=== PATIENT | male | born 1975 | race Caucasian/White ===

== ENCOUNTER 2018-11-17 16:27 | Inpatient (IN) | payer OTHER ==
[2018-11-17 18:33] VITALS: BMI 28.6
--- NOTE | 2018-11-17 19:01 | HP ---
CIWA Score Nausea/Vomitin-No Nausea/No Vomiting Muscle Tremors: 3 Anxiety: 2 Agitation: 1-Slight > Activity Paroxysmal Sweats: 2 Orientation: 0-Oriented Tacttile Disturbances: 3-Moderate Itch/Numb/Burn Auditory Disturbances: 0-None Visual Disturbances: 1-Very Mild Sensitivity Headache: 0-None Present CIWA-Ar Total Score: 12 - Admission Criteria OASAS Guidelines: Admission for Medically Managed Detox: Requires at least one of the followin. CIWA greater than 12 2. Seizures within the past 24 hours 3. Delirium tremens within the past 24 hours 4. Hallucinations within the past 24 hours 5. Acute intervention needed for co occurring medical disorder 6. Acute intervention needed for co occurring psychiatric disorder 7. Severe withdrawal that cannot be handled at a lower level of care (continued vomiting, continued diarrhea, abnormal vital signs) requiring intravenous medication and/or fluids 8. Patient presents the following: CIWA greater than 12 Admission Criteria Met: Admission criteria met Admission ROS S - [facility] Chief Complaint: alcohol withdrawal Allergies/Adverse Reactions: Allergies Allergy/AdvReac Type Severity Reaction Status Date / Time No Known Allergies Allergy Verified 11/17/18 18:25 History of Present Illness: 42 yo male with hx of alcohol dependence is here inpatient alcohol detox. Reports first time seeking treatment for his alcohol use. Reports currently drinking 2 litters of henessy three times a week and uses cocaine three times per week . PMHX: HDL. Psych: Denies. Denies SI/ HI or hx of suicide attempt. Denies hx of seizures or blackouts. Exam Limitations: No Limitations - Ebola screening Have you traveled outside of the country in the last 21 days: No Have you had contact with anyone from an Ebola affected area: No Do you have a fever: No - Review of Systems Constitutional: Chills, Changes in sleep, Unintentional Wgt. Loss EENT: reports: No Symptoms Reported Respiratory: reports: No Symptoms reported Cardiac: reports: No Symptoms Reported GI: reports: Constipated, Poor Fluid Intake, Indigestion : reports: Other (hesitancy) Musculoskeletal: reports: Back Pain Integumentary: reports: No Symptoms Reported Neuro: reports: Numbness (both feet) Endocrine: reports: Increased Thirst Hematology: reports: No Symptoms Reported Psychiatric: reports: Orientated x3, Depressed Other Systems: Reviewed and Negative Patient History - Patient Medical History Hx Anemia: No Hx Asthma: No Hx Chronic Obstructive Pulmonary Disease (COPD): No Hx Cancer: No Hx Cardiac Disorders: No Hx Congestive Heart Failure: No Hx Hypertension: No Hx Hypercholesterolemia: Yes Hx Pacemaker: No HX Cerebrovascular Accident: No Hx Seizures: No Hx Dementia: No Hx Diabetes: No Hx Gastrointestinal Disorders: No Hx Liver Disease: No Hx Genitourinary Disorders: No Hx Sexually Transmitted Disorders: No Hx Renal Disease (ESRD): No Hx Thyroid Disease: No Hx Hepatitis C: No Hx Depression: Yes Hx Suicide Attempt: No Hx Bipolar Disorder: No Hx Schizophrenia: No - Patient Surgical History Past Surgical History: No - PPD History Previous Implant?: No Documented Results: Negative w/o proof PPD to be Administered?: Yes - Smoking Cessation Smoking history: Never smoked Hx Chewing Tobacco Use: No Initiated information on smoking cessation: No - Substance & Tx. History Hx Alcohol Use: Yes Hx Substance Use: Yes Substance Use Type: Alcohol, Cocaine Hx Substance Use Treatment: No - Substances abused Alcohol Substance route: Oral Frequency: 3-6 times per week Amount used: 2 liters of [place] and 8 x 12 oz beers Age of first use: 19 Date of last use: 11/17/18 Cocaine Substance route: Inhalation Frequency: 3-6 times per week Amount used: 100$ 3x a week Age of first use: 17 Date of last use: 11/17/18 Family Disease History - Family Disease History Family History: Denies Admission Physical Exam S - Vital Signs Vital Signs: Vital Signs - 24 hr 11/17/18 18:26 Temperature 99.1 F Pulse Rate 67 Respiratory 18 Rate Blood Pressure 136/87 - Physical General Appearance: Yes: Nourished, Appropriately Dressed, Mild Distress, Sweating, Anxious HEENTM: Yes: EOMI, Hearing grossly Normal, Normal ENT Inspection, Normocephalic , Normal Voice, BRITTANI, Pharynx Normal, Tm's normal Respiratory: Yes: Chest Non-Tender, Lungs Clear, No Respiratory Distress, No Accessory Muscle Use, Wheezing Neck: Yes: Within Normal Limits Breast: Yes: Breast Exam Deferred Cardiology: Yes: Regular Rhythm, Regular Rate Abdominal: Yes: Normal Bowel Sounds, Non Tender, Flat, Soft Genitourinary: Yes: Within Normal Limits Back: Yes: Normal Inspection Musculoskeletal: Yes: full range of Motion, Gait Steady, Pelvis Stable Extremities: Yes: Normal Capillary Refill, Normal Inspection, Normal Range of Motion, Non-Tender Neurological: Yes: aircraft stress analyst II-XII NML intact, Fully Oriented, Alert, Motor Strength 5/5, Depressed Affect Integumentary: Yes: Normal Color, Warm, Diaphoresis Lymphatic: Yes: Within Normal Limits - Diagnostic (1) Alcohol dependence with uncomplicated withdrawal Current Visit: Yes Status: Acute (2) Depressed mood Current Visit: Yes Status: Acute (3) Wheezing Current Visit: Yes Status: Acute Cleared for Admission [facility] - Detox or Rehab [facility] Level of Care: Medically Managed Detox Regimen/Protocol: Librium Inpatient Rehab Admission - Rehab Decision to Admit Inpatient rehab admission?: No
[2018-11-17] MEDS ORDERED: MAGNESIUM CITRATE 300 ML BOTTLE PO PRN (19:07)
[2018-11-17] MEDS ORDERED: ACETAMINOPHEN 325 MG TABLET (FP) PO PRN ×2 (19:07)
[2018-11-17] MEDS ORDERED: MAGNESIUM HYDROX 2400MG/30ML ORAL SUSPENSION 30 ML CUP PO PRN (19:07)
[2018-11-17] MEDS ORDERED: IBUPROFEN 400 MG TABLET (FP) PO PRN (19:07)
[2018-11-17] MEDS ORDERED: MENTHOL/PHENOL 1 EACH UD MM PRN (19:07)
[2018-11-17] MEDS ORDERED: MAG HYDROX/AL HYDROX/SIMETH 30 ML UNIT-DOSE CUP PO PRN (19:07)
[2018-11-17] MEDS ORDERED: BISMUTH SUBSALICYLATE 524 MG/30 ML UD PO PRN (19:07)
[2018-11-17] MEDS ORDERED: METHOCARBAMOL 500 MG TABLET PO PRN (19:07)
[2018-11-17] MEDS ORDERED: hydrOXYzine PAMOATE 25 MG CAPSULE (FP) PO PRN (19:07)
[2018-11-17] MEDS ORDERED: chlordiazePOXIDE HCL 25 MG CAPSULE PO PRN (19:07)
[2018-11-17] MEDS ORDERED: ALBUTEROL SO4 0.083% IH SOL 2.5 MG/3 ML VIAL.NEB. NEB PRN (19:25)
[2018-11-17] MEDS: chlordiazePOXIDE HCL 25 MG CAPSULE PO SCH (22:12)
[2018-11-17] MEDS: THIAMINE HCL 100 MG TABLET (FP) PO SCH (22:12)
[2018-11-18] MEDS: chlordiazePOXIDE HCL 25 MG CAPSULE PO SCH ×4 (06:03→22:36)
[2018-11-18 10:10] LABS: ALBUMIN 3.6 g/dl (3.4-5.0); BILIRUBIN,TOTAL 0.4 mg/dL (0.2-1); CALCIUM 8.7 mg/dL (8.5-10.1); CREATININE 1.1 mg/dL (0.55-1.3); TOT PROT 6.9 g/dl (6.4-8.2)
[2018-11-18 10:14] LABS: HEMATOCRIT 40.4 % (35.4-49); HEMOGLOBIN 13.5 GM/dL (11.7-16.9); MCH 30.7 pg (25.7-33.7); MCHC 33.3 g/dl (32.0-35.9); MEAN CELL VOLUME 92.2 fl (80-96); MEAN PLT VOLUME 9.4 fl (7.5-11.1); PLATELET COUNT 172 K/MM3 (134-434); RBC 4.38 M/mm3 (4.00-5.60); RDW 13.1 % (11.9-15.9); WHITE BLOOD COUNT 3.7 K/mm3 (4.0-10.0)
[2018-11-18] MEDS: PRENATAL VITAMINS W/ FOLIC ACID TABLET (FP) PO SCH (10:48)
--- NOTE | 2018-11-18 10:53 | EKG ---
Test Reason : Blood Pressure : / mmHG Vent. Rate : 051 BPM Atrial Rate : 051 BPM P-R Int : 152 ms QRS Dur : 090 ms QT Int : 434 ms P-R-T Axes : 046 026 035 degrees QTc Int : 400 ms SINUS BRADYCARDIA OTHERWISE NORMAL ECG NO PREVIOUS ECGS AVAILABLE Confirmed by DESTINY JACKSON MD ([id number]) on 11/18/2018 10:52:59 AM Referred By: Confirmed By:DESTINY JACKSON MD
--- NOTE | 2018-11-18 11:10 | CONSULT ---
[facility] Psychiatric Consult - Data Date of interview: 11/18/18 Admission source: [facility] Identifying data: First admission to [facility] for this 42 y/o male self-referred for detoxification treatment (alcohol, cocaine). Examined at [address] [place] [address]. Patient is , a father of one, domiciled and employed. Substance Abuse History: Confirmed by the patient in this interview. Details in current [facility] report as follows : Smoking history: Never smoked. Hx Chewing Tobacco Use: No. Initiated information on smoking cessation: No. Substance & Tx. History. Hx Alcohol Use: Yes. Hx Substance Use: Yes. Substance Use Type: Alcohol, Cocaine. Hx Substance Use Treatment: No. - Substances abused. Alcohol. Substance route: Oral. Frequency: 3-6 times per week. Amount used: 2 liters of [place] and 8 x 12 oz beers. Age of first use: 19. Date of last use: 11/17/18. Cocaine. Substance route: Inhalation. Frequency: 3-6 times per week. Amount used: 100$ 3x a week. Age of first use: 17. Date of last use : 11/17/18 Medical History: Patient endorses good general health. Psychiatric History: Patient denies. Physical/Sexual Abuse/Trauma History: No history. Additional Comment: No toxicology on file. Mental Status Exam - Mental Status Exam Alert and Oriented to: Time, Place, Person Cognitive Function: Good Patient Appearance: Well Groomed Mood: Nervous, Withdrawn, Anxious Affect: Mood Congruent, Constricted Patient Behavior: Fatigued, Appropriate, Cooperative Speech Pattern: Clear, Appropriate (in eritrean) Voice Loudness: Normal Thought Process: Goal Oriented Thought Disorder: Not Present Hallucinations: Denies Suicidal Ideation: Denies Homicidal Ideation: Denies Insight/Judgement: Poor Sleep: Well Appetite: Good Muscle strength/Tone: Normal Gait/Station: Normal Psychiatric Findings - Problem List (Roy 1, 2,3) (1) Alcohol dependence with uncomplicated withdrawal Current Visit: Yes Status: Acute (2) Cocaine dependence Current Visit: Yes Status: Chronic Comment: As per self-report. - Initial Treatment Plan Initial Treatment Plan: Psychoeducation. Sleep hygiene. Detoxification. Relapse prevention (MAT) : discussed in this session. Observation.
--- NOTE | 2018-11-18 12:14 | PN ---
S CIWA - CIWA Score Nausea/Vomitin-No Nausea/No Vomiting Muscle Tremors: 4-Moderate,w/Arms Extend Anxiety: 4-Mod. Anxious/Guarded Agitation: 3 Paroxysmal Sweats: 1-Minimal Palms Moist Orientation: 0-Oriented Tacttile Disturbances: 0-None Auditory Disturbances: 0-None Visual Disturbances: 0-None Headache: 0-None Present CIWA-Ar Total Score: 12 BHS Progress Note (SOAP) Subjective: SLIGHT TREMORS, ANXIETY, SWEATS. Objective: 11/18/18 12:13 Vital Signs 11/18/18 11/18/18 06:04 09:14 Temperature 96.7 F L 97.3 F L Pulse Rate 62 58 L Respiratory 18 18 Rate Blood Pressure 109/61 97/62 Laboratory Tests 11/18/18 11/18/18 07:45 07:45 WBC 3.7 L RBC 4.38 Hgb 13.5 Hct 40.4 MCV 92.2 MCH 30.7 MCHC 33.3 RDW 13.1 Plt Count 172 MPV 9.4 Sodium 140 Potassium 4.0 Chloride 104 Carbon Dioxide 29 Anion Gap 7 L BUN 13 Creatinine 1.1 Est GFR (CKD-EPI)AfAm 94.79 Est GFR (CKD-EPI)NonAf 81.78 Random Glucose 88 Calcium 8.7 Total Bilirubin 0.4 AST 14 L ALT 29 Alkaline Phosphatase 70 Total Protein 6.9 Albumin 3.6 Assessment: 11/18/18 12:14 WITHDRAWAL SX Plan: CONTINUE DETOX
[2018-11-18] MEDS: THIAMINE HCL 100 MG TABLET (FP) PO SCH (22:35)
[2018-11-18] MEDS: MELATONIN 5 MG TABLETS PO PRN (22:36)
[2018-11-19] MEDS: chlordiazePOXIDE HCL 25 MG CAPSULE PO SCH ×3 (06:17→17:52)
[2018-11-19] MEDS: PRENATAL VITAMINS W/ FOLIC ACID TABLET (FP) PO SCH (10:05)
--- NOTE | 2018-11-19 11:52 | PN ---
S CIWA - CIWA Score Nausea/Vomitin-Mild Nausea/No Vomiting Muscle Tremors: 2 Anxiety: 2 Agitation: 2 Paroxysmal Sweats: 1-Minimal Palms Moist Orientation: 0-Oriented Tacttile Disturbances: 0-None Auditory Disturbances: 0-None Visual Disturbances: 0-None Headache: 0-None Present CIWA-Ar Total Score: 8 S Progress Note (SOAP) Subjective: patient reported that he is taking flomax daily x "years" last dose "days" ago feeling better today social with peers on hallway in day room Objective: 11/19/18 12:22 Vital Signs Temperature 97.1 F L 11/19/18 09:11 Pulse Rate 56 L 11/19/18 09:11 Respiratory Rate 18 11/19/18 09:11 Blood Pressure 100/60 11/19/18 09:11 O2 Sat by Pulse Oximetry (%) Laboratory Last Values WBC 3.7 K/mm3 (4.0-10.0) L 11/18/18 07:45 RBC 4.38 M/mm3 (4.00-5.60) 11/18/18 07:45 Hgb 13.5 GM/dL (11.7-16.9) 11/18/18 07:45 Hct 40.4 % (35.4-49) 11/18/18 07:45 MCV 92.2 fl (80-96) 11/18/18 07:45 MCH 30.7 pg (25.7-33.7) 11/18/18 07:45 MCHC 33.3 g/dl (32.0-35.9) 11/18/18 07:45 RDW 13.1 % (11.9-15.9) 11/18/18 07:45 Plt Count 172 K/MM3 (134-434) 11/18/18 07:45 MPV 9.4 fl (7.5-11.1) 11/18/18 07:45 Sodium 140 mmol/L (136-145) 11/18/18 07:45 Potassium 4.0 mmol/L (3.5-5.1) 11/18/18 07:45 Chloride 104 mmol/L (98-107) 11/18/18 07:45 Carbon Dioxide 29 mmol/L (21-32) 11/18/18 07:45 Anion Gap 7 MMOL/L (8-16) L 11/18/18 07:45 BUN 13 mg/dL (7-18) 11/18/18 07:45 Creatinine 1.1 mg/dL (0.55-1.3) 11/18/18 07:45 Est GFR (CKD-EPI)AfAm 94.79 11/18/18 07:45 Est GFR (CKD-EPI)NonAf 81.78 11/18/18 07:45 Random Glucose 88 mg/dL (74-106) 11/18/18 07:45 Calcium 8.7 mg/dL (8.5-10.1) 11/18/18 07:45 Total Bilirubin 0.4 mg/dL (0.2-1) 11/18/18 07:45 AST 14 U/L (15-37) L 11/18/18 07:45 ALT 29 U/L (13-61) 11/18/18 07:45 Alkaline Phosphatase 70 U/L (45-117) 11/18/18 07:45 Total Protein 6.9 g/dl (6.4-8.2) 11/18/18 07:45 Albumin 3.6 g/dl (3.4-5.0) 11/18/18 07:45 RPR Titer Nonreactive (NONREACTIVE) 11/18/18 07:45 lab noted Assessment: 11/19/18 12:23 withdrawal sx Plan: continue detox
[2018-11-19] MEDS: THIAMINE HCL 100 MG TABLET (FP) PO SCH (22:31)
[2018-11-19] MEDS: MELATONIN 5 MG TABLETS PO PRN (22:31)
[2018-11-19] MEDS: TAMSULOSIN HCL 0.4 MG CAP PO SCH (22:31)
[2018-11-19] MEDS: chlordiazePOXIDE HCL 10 MG CAPSULE PO SCH (22:31)
[2018-11-19] MEDS ORDERED: chlordiazePOXIDE HCL 10 MG CAPSULE PO PRN (23:00)
[2018-11-20] MEDS: chlordiazePOXIDE HCL 10 MG CAPSULE PO SCH ×3 (05:12→17:54)
[2018-11-20] MEDS: PRENATAL VITAMINS W/ FOLIC ACID TABLET (FP) PO SCH (10:05)
--- NOTE | 2018-11-20 13:10 | PN ---
S CIWA - CIWA Score Nausea/Vomitin-No Nausea/No Vomiting Muscle Tremors: 2 Anxiety: 1-Mildly Anxious Agitation: 2 Paroxysmal Sweats: No Perspiration Orientation: 0-Oriented Tacttile Disturbances: 0-None Auditory Disturbances: 0-None Visual Disturbances: 0-None Headache: 0-None Present CIWA-Ar Total Score: 5 S Progress Note (SOAP) Subjective: feeling better today sleep through the night hesitate to discuss aftercare with staff Objective: 11/20/18 13:10 Vital Signs Temperature 97.8 F 11/20/18 09:17 Pulse Rate 68 11/20/18 09:17 Respiratory Rate 18 11/20/18 09:17 Blood Pressure 94/61 11/20/18 09:17 O2 Sat by Pulse Oximetry (%) Laboratory Last Values WBC 3.7 K/mm3 (4.0-10.0) L 11/18/18 07:45 RBC 4.38 M/mm3 (4.00-5.60) 11/18/18 07:45 Hgb 13.5 GM/dL (11.7-16.9) 11/18/18 07:45 Hct 40.4 % (35.4-49) 11/18/18 07:45 MCV 92.2 fl (80-96) 11/18/18 07:45 MCH 30.7 pg (25.7-33.7) 11/18/18 07:45 MCHC 33.3 g/dl (32.0-35.9) 11/18/18 07:45 RDW 13.1 % (11.9-15.9) 11/18/18 07:45 Plt Count 172 K/MM3 (134-434) 11/18/18 07:45 MPV 9.4 fl (7.5-11.1) 11/18/18 07:45 Sodium 140 mmol/L (136-145) 11/18/18 07:45 Potassium 4.0 mmol/L (3.5-5.1) 11/18/18 07:45 Chloride 104 mmol/L (98-107) 11/18/18 07:45 Carbon Dioxide 29 mmol/L (21-32) 11/18/18 07:45 Anion Gap 7 MMOL/L (8-16) L 11/18/18 07:45 BUN 13 mg/dL (7-18) 11/18/18 07:45 Creatinine 1.1 mg/dL (0.55-1.3) 11/18/18 07:45 Est GFR (CKD-EPI)AfAm 94.79 11/18/18 07:45 Est GFR (CKD-EPI)NonAf 81.78 11/18/18 07:45 Random Glucose 88 mg/dL (74-106) 11/18/18 07:45 Calcium 8.7 mg/dL (8.5-10.1) 11/18/18 07:45 Total Bilirubin 0.4 mg/dL (0.2-1) 11/18/18 07:45 AST 14 U/L (15-37) L 11/18/18 07:45 ALT 29 U/L (13-61) 11/18/18 07:45 Alkaline Phosphatase 70 U/L (45-117) 11/18/18 07:45 Total Protein 6.9 g/dl (6.4-8.2) 11/18/18 07:45 Albumin 3.6 g/dl (3.4-5.0) 11/18/18 07:45 RPR Titer Nonreactive (NONREACTIVE) 11/18/18 07:45 lab noted Assessment: 11/20/18 13:11 withdrawal sx Plan: continue detox
[2018-11-20] MEDS: TAMSULOSIN HCL 0.4 MG CAP PO SCH (22:06)
[2018-11-20] MEDS: THIAMINE HCL 100 MG TABLET (FP) PO SCH (22:06)
[2018-11-20] MEDS: MELATONIN 5 MG TABLETS PO PRN (22:06)
[2018-11-20] MEDS ORDERED: chlordiazePOXIDE HCL 10 MG CAPSULE PO SCH (23:00)
[2018-11-21 09:15] VITALS: BP 126/72; PULSE 75; TEMP 97.4
--- NOTE | 2018-11-21 15:27 | DS ---
[facility] Detox Discharge Summary Admission Date: 11/17/18 Discharge Date: 11/21/18 - History Present History: Alcohol Dependence Additional Comments: 42 years old male admitted on 11/17/18 for alcohol withdrawal stabilization [facility] Pertinent Past History: medication list and lab report to follow up appointment - Physical Exam Results Vital Signs: Vital Signs Temperature 97.4 F L 11/21/18 09:14 Pulse Rate 75 11/21/18 09:14 Respiratory Rate 18 11/21/18 09:14 Blood Pressure 126/72 11/21/18 09:14 O2 Sat by Pulse Oximetry (%) Pertinent Admission Physical Exam Findings: alcohol withdrawal sx Laboratory Last Values WBC 3.7 K/mm3 (4.0-10.0) L 11/18/18 07:45 RBC 4.38 M/mm3 (4.00-5.60) 11/18/18 07:45 Hgb 13.5 GM/dL (11.7-16.9) 11/18/18 07:45 Hct 40.4 % (35.4-49) 11/18/18 07:45 MCV 92.2 fl (80-96) 11/18/18 07:45 MCH 30.7 pg (25.7-33.7) 11/18/18 07:45 MCHC 33.3 g/dl (32.0-35.9) 11/18/18 07:45 RDW 13.1 % (11.9-15.9) 11/18/18 07:45 Plt Count 172 K/MM3 (134-434) 11/18/18 07:45 MPV 9.4 fl (7.5-11.1) 11/18/18 07:45 Sodium 140 mmol/L (136-145) 11/18/18 07:45 Potassium 4.0 mmol/L (3.5-5.1) 11/18/18 07:45 Chloride 104 mmol/L (98-107) 11/18/18 07:45 Carbon Dioxide 29 mmol/L (21-32) 11/18/18 07:45 Anion Gap 7 MMOL/L (8-16) L 11/18/18 07:45 BUN 13 mg/dL (7-18) 11/18/18 07:45 Creatinine 1.1 mg/dL (0.55-1.3) 11/18/18 07:45 Est GFR (CKD-EPI)AfAm 94.79 11/18/18 07:45 Est GFR (CKD-EPI)NonAf 81.78 11/18/18 07:45 Random Glucose 88 mg/dL (74-106) 11/18/18 07:45 Calcium 8.7 mg/dL (8.5-10.1) 11/18/18 07:45 Total Bilirubin 0.4 mg/dL (0.2-1) 11/18/18 07:45 AST 14 U/L (15-37) L 11/18/18 07:45 ALT 29 U/L (13-61) 11/18/18 07:45 Alkaline Phosphatase 70 U/L (45-117) 11/18/18 07:45 Total Protein 6.9 g/dl (6.4-8.2) 11/18/18 07:45 Albumin 3.6 g/dl (3.4-5.0) 11/18/18 07:45 RPR Titer Nonreactive (NONREACTIVE) 11/18/18 07:45 lab noted - Treatment Hospital Course: Detox Protocol Followed, Detoxed Safely, Responded well, Discharged Condition Good, Rehab Referral Accepted Patient has Accepted a Rehab Referral to: [facility] - Medication Discharge Medications: Ambulatory Orders Tamsulosin HCl [Flomax -] 0.4 mg PO HS 11/19/18 - Diagnosis (1) Alcohol dependence with uncomplicated withdrawal Status: Acute - AMA Did Patient Leave Against Medical Advice: No
== END 2018-11-21 09:30 | disposition home or self-care (01) | DRG 774 ==
LOC: YASAS 16:27 → Y3N 19:33
PROVIDERS: ADMIT Surgery; ATTEND Surgery
PROC: HZ2ZZZZ Detoxification Services for Substance Abuse Treatment (ICD-10-PCS; principal; 2018-11-17)
DX: F10.230 Alcohol dependence with withdrawal, uncomplicated (principal); F14.20 Cocaine dependence, uncomplicated; F32.9 Major depressive disorder, single episode, unspecified; R06.2 Wheezing
CPT/HCPCS: 36415; 80053; 85027; 86593; 93005; 93010